=== PATIENT | male | born 1970 | race Caucasian/White ===

== ENCOUNTER 2021-07-02 08:59 | Inpatient (IN) | payer OTHER ==
[2021-07-02] VITALS (35 sets, daily range): BP systolic 72–163; BP diastolic 29–75
[~2021-07-02] VITALS: Ht 167.6 cm; Wt 62.0 kg
--- NOTE | ~2021-07-02 | EMS ---
[address] [address] EMS Patient Care Report Name: JUANITA CHAVES Room #: 451-P ADM IN M.R.#: [id number] Admission: 07/02/21 Attend Phys: Marcos Ansari Discharge: Date of : 70 Report #: [id number] THIS REPORT FOR: //name// Report Transmitted: 07/07/2021 15:11 EMS Care Summary [place], [place]/[facility] Incident [id number] @ 07/02/2021 08:25 Incident Location [address] [place] [address] Patient JUANITA CHAVES Male, 51 Years 1970 Patient Address [address] [place], [place] [id number] Patient History Other,Hypertension (HTN),Stroke/CVA,Gastro-Esophageal Reflux Disease (GERD),Deep Vein Thrombosis,Sepsis,Paraplegia,Pressure Ulcer,Constipation,Dysphagia,Urinary Incontinence,Malnutrition,Chronic Kidney Disease, Patient Allergies No known allergies, Patient Medications Baclofen, Polyethlene Glycol, Zinc, Multivitamin, Atorvastatin, Cephalexin, Gabapentin, Xarelto, Lisinopril, Acetaminophen, Pantoprazole, Amlodipine, Mirtazapine, Lovenox, Ascorbic Acid, Senna, Chief Complaint Sepsis, UTI Disposition Transported No Lights/[place] Dispatch Reason Breathing Problem Transported To [address] [address] EMS Patient Care Report Name: JUANITA CHAVES Room #: 451-P ADM IN .R.#: [id number] Admission: 07/02/21 Attend Phys: Marcos Ansari Discharge: Date of : 70 Report #: [id number] Narrative Initially dispatched with Pumper 28 for breathing problems. Upon EMS arrival patient was found sitting in his hospital bed, on 4lpm oxygen via cannula, tremoring, conscious, alert, non verbal. Staff on scene reported that the patient is normally non verbal due to a previous stroke. They reported that the patient is hot to the touch, his urine is dark in color, his SpO2 readings were low on room air, his tremors are worse than normal, and his White Blood Cell count was elevated. Patient was moved to the stretcher, secured, and loaded into the ambulance. Auscultation of the lungs found them to be clear and equal bilaterally. surveillance monitor showed Sinus Rhythm. Patient was transported to [facility] without incident. Full report was given to RN prior to signing this document. Initial Vitals @08:48P: 92,SpO2: 71, @08:46P: 91,SpO2: 99, @08:39P: 66,SpO2: 83, @08:53P: 102,SpO2: 83, @08:44P: 91,SpO2: 79,VA Suspected: false @08:51P: 116,BP: 93/63,GCS: 11,SpO2: 99, @08:41P: 56,R: 20,BP: 110/61,Pain: 0/10,GCS: 11,Glucose: 157,SpO2: 96,Revised Trauma: 11, Assessments @08:37MENTAL:No Abnormalities,SKIN:Hot,HEENT:Head/Face: No Abnormalities,Eyes: No Abnormalities,Neck/Airway: No Abnormalities,LUNG SOUNDS:ABDOMEN:PELVIS//GI:EXTREMITIES:Left Arm: No Abnormalities,Right Arm: No Abnormalities,Left Leg: No Abnormalities,Right Leg: No Abnormalities,PULSE:NEURO:Tremors,Weakness Right-Sided,Weakness Left-Sided, Impression Sepsis/Septicemia Procedures @08:37 ALS Assessment Response: UnchangedSucceeded @08:45 IV Therapy - Saline Lock 10cc (20 ga) Site: Antecubital-Left Response: UnchangedSucceeded @PTAOxygen FlowRate: 4 Device: Nasal Cannula (NC) Response: ImprovedSucceeded @08:44 3-Lead ECG Response: UnchangedSucceeded Timeline [employer] MANAGER,Oxygen FlowRate: 4 Device: Nasal Cannula (NC) Response: ImprovedSucceeded, 08:23,Call Received 08:23,[place] [address] EMS Patient Care Report Name: JUANITA CHAVES Room #: 451-P [facility] IN M.R.#: [id number] Admission: 07/02/21 Attend Phys: Marcos Ansari Discharge: Date of : 70 Report #: [id number] 08:25,Dispatched 08:26,En Route 08:35,On Scene 08:37,At Patient 08:37,ALS Assessment,Response: UnchangedSucceeded, 08:39,BP: / M,PULSE: 66,RR: R,SPO2: 83 Ox,ETCO2: ,BG: ,PAIN: ,GCS: , 08:41,BP: 110/61 M,PULSE: 56,RR: 20 R,SPO2: 96 Ox,ETCO2: ,B,PAIN: 0,GCS: 11, 08:44,3-Lead ECG,Response: UnchangedSucceeded, 08:44,BP: / M,PULSE: 91,RR: R,SPO2: 79 Ox,ETCO2: ,BG: ,PAIN: ,GCS: , 08:45,IV Therapy - Saline Lock 10cc 20 ga Site: Antecubital-Left,Response: UnchangedSucceeded, 08:46,BP: / M,PULSE: 91,RR: R,SPO2: 99 Ox,ETCO2: ,BG: ,PAIN: ,GCS: , 08:48,Depart Scene 08:48,BP: / M,PULSE: 92,RR: R,SPO2: 71 Ox,ETCO2: ,BG: ,PAIN: ,GCS: , 08:51,BP: 93/63 M,PULSE: 116,RR: R,SPO2: 99 Ox,ETCO2: ,BG: ,PAIN: ,GCS: 11, 08:53,BP: / M,PULSE: 102,RR: R,SPO2: 83 Ox,ETCO2: ,BG: ,PAIN: ,GCS: , 08:55,At Destination 09:09,Call Closed Disclaimer v1.1 Copyright 2020 [employer] This EMS Care Summary contains data elements from the applicable legal record (which may be displayed differently). It is designed to provide pertinent information for the following purposes: continuity of care, clinical quality, and state data reporting. The complete legal record is available to ED staff and administrators of the receiving hospital in [employer] Patient Tracker. All data is provided "as is."
[2021-07-02 09:33] LABS: HEMATOCRIT 30.2 % (42.0-52.0); HEMOGLOBIN 9.5 gm/dL (14.0-18.0); MCH 26.6 pg (26.0-34.0); MCHC 31.5 g/dL (28.0-37.0); MCV 84.2 fL (80.0-100.0); PLATELET COUNT 306 thou/uL (150-400); RBC 3.58 mil/uL (4.50-6.00); RDW 17.1 % (10.5-14.5); WBC 21.7 thou/uL (4.0-11.0)
[2021-07-02 09:35] LABS: CALCIUM 9.3 mg/dL (8.5-10.1); CREATININE 6.2 mg/dL (0.7-1.3); POTASSIUM 4.5 mmol/L (3.5-5.1)
[2021-07-02 09:55] LABS: ALBUMIN 2.7 g/dL (3.4-5.0); TOTAL BILIRUBIN 0.1 mg/dL (0.2-1.0); TOTAL PROTEIN 7.4 g/dL (6.4-8.2)
[2021-07-02 11:00] LABS: URINE BLOOD 3+ (Negative); URINE GLUCOSE-RANDOM* NEGATIVE (Negative); URINE KETONES TRACE (Negative); URINE PROTEIN (DIPSTICK) 3+ (Negative); URINE UROBILINOGEN 0.2 E.U./dl (0.2-1.0)
[2021-07-02 11:03] LABS: ICTOTEST (BILI CONFIRMATORY) Negative (Negative); URINE BILIRUBIN NEGATIVE (Negative); URINE CLARITY CLOUDY; URINE COLOR BROWN; URINE LEUKOCYTES-REFLEX 3+ (Negative); URINE NITRITE-REFLEX POSITIVE (Negative)
[2021-07-02 11:33] LABS: SQUAMOUS 0-3 Few /LPF (0-3)
[2021-07-02 11:34] LABS: BACTERIA-REFLEX >30 Many /HPF (None Seen); CASTS None Seen /LPF (None Seen); URINE RBC >20 Many /HPF (NONE SEEN); URINE WBC-REFLEX >25 Many /HPF (0-5)
[2021-07-02 11:34] LABS: ABSOLUTE NEUTROPHILS 19.7 thou/uL (1.4-8.2)
[2021-07-02 11:35] LABS: ANISOCYTOSIS 1+
[2021-07-02 11:35] LABS: TRIPLE PHOSPHATE CRYSTALS >10 Many /LPF (None Seen)
[2021-07-02 11:36] LABS: AMORPHOUS PHOSPHATES Few /LPF (None Seen)
--- NOTE | 2021-07-02 12:49 | NUR ---
VAT CONSULTED FOR CVL PLACEMENT. DR MEJIA SIGNED CONSENT MEDICAL EMERGENCY, PT UNABLE TO CONSENT. LEFT TL 6FR JACC CATHETER TO IJ. TRIMMED 25CM/8CM EXTERNAL. RADIOLOGY REPORTS TIP OVERLIES MID SVC, PER CXR. RELEASED LINE FOR USE, PER VASCULAR ACCESS POLICY. TIMEOUT WITH SABINE MORGAN.
--- NOTE | 2021-07-02 16:26 | NUR ---
PT WAS BROUGHT TO ICU AT 1340 BY E.R. STAFF. PT ARRIVED ON 5L 02 VIA MS. ADMISSION HISTORY, EDUCATION, AND ASSESSMENT WERE COMPLETED BY THIS RN. PT IS STABLE AND HAS APPEARED COMFORTABLE. WILL CONTINUE TO FOLLOW POC.
[2021-07-03] VITALS (33 sets, daily range): BP systolic 101–145; BP diastolic 34–84
--- NOTE | 2021-07-03 05:04 | HC ---
[facility] [place] [address] CONSULTATION Name: JUANITA CHAVES Room #: 243-P [facility] IN M.R.#: [id number] Admission: 07/02/21 Attend Phys: Marcos Ansari Discharge: Date of : 70 Report #: [id number] THIS REPORT FOR: cc: Daniel Hogan MD, Srinath MD Barry,Adán Segovia MD ~ DATE OF SERVICE: 07/02/2021 INFECTIOUS DISEASE CONSULTATION ATTENDING PHYSICIAN: Dr. Ansari. REASON FOR EVALUATION: Complicated urinary tract infection, complicated by hemodynamic instability with septic shock. HISTORY OF PRESENT ILLNESS: Chart reviewed. The patient examined. This is a 51-year-old gentleman with previous history of stroke, left him aphasic. He does reside in a facility. Staff noted he had fever and dyspnea, was found to have low-grade saturations, therefore, was referred to the Emergency Room. Evaluation was undertaken and was unable to give any additional history either to them or to me. He is now seen in the intensive care unit, maintained on 5-6 liters per nasal cannula, was initiated on 2 pressors at this point. Screening test for coronavirus was negative. Lactic acid was 2.1, repeat was 1.7. Electrolytes remarkable for creatinine of 6.2, albumin of 2.7. Chest x-ray: Mild bibasilar interstitial infiltrates. Urinalysis did show marked pyuria and bacteriuria. CT abdomen and pelvis showed changes consistent with acute cystitis. No hydronephrosis. Blood and urine cultures have been collected and are pending. Empirically started on combination therapy with cefepime and vancomycin. ALLERGIES: None known. MEDICATIONS: Include vancomycin, famotidine, cefepime, norepinephrine and vasopressin at this point. PAST MEDICAL HISTORY: Known history of stroke with aphasia; it is difficult to ascertain his overall deficits. Staff reports he has moved all his limbs. PHYSICAL EXAMINATION: VITAL SIGNS: Temperature 97.9, pulse 92, respirations 23, blood pressure is 113/72, pressor supported. HEENT: Normocephalic. Nasal cannula in place, 4-5 liters. NECK: Apparently supple. LUNGS: Bilateral scattered coarse breath sounds. HEART: Borderline tachycardic. I do not appreciate a murmur. ABDOMEN: Mildly distended and slightly firm. There are no evident peritoneal [facility] [address] [place] [address] CONSULTATION Name: JUANITA CHAVES Room #: 243-P ADM IN M.R.#: [id number] Admission: 07/02/21 Attend Phys: Marcos Ansari Discharge: Date of : 70 Report #: [id number] signs. GENITOURINARY AND RECTAL: Deferred. LABORATORY DATA: As described above. CT abdomen and pelvis; chest x-ray, minimal bibasilar non-consolidative opacities. Lactic acid initially 2.1, repeat was 1.7. Urinalysis with marked pyuria and bacteriuria. CBC: White count of 21.7, H and H 9.5 and 38.2, platelets of 306. Electrolytes: Sodium 142, potassium 4.5, chloride 104, bicarbonate is 24, anion gap of 14, BUN and creatinine 85 and 6.2, glucose of 134. LFTs unremarkable. Albumin of 2.7, total protein of 7.4. ASSESSMENT AND PLAN: Septic shock. The patient certainly has risk for infectious complications, evidence suggests complicated genitourinary tract infection, cannot entirely exclude early pneumonitis as well, often these go in ____. We will continue broad-spectrum antimicrobial therapy adjusted for his renal failure. Historically, there is there is no evidence he has had an issue with this, presumably it is an acute renal injury and may well recover. Continue supportive care with oxygen therapy, pressors as required. He remains critically ill at this point and at risk for clinical deterioration as well as other types of complications. <ELECTRONICALLY SIGNED> By: Adán Arriaga MD 07/03/21 0504 1459 2034 Adán Arriaga MD /nt
[2021-07-03 05:37] LABS: ABSOLUTE NEUTROPHILS 15.3 thou/uL (1.4-8.2); HEMATOCRIT 25.7 % (42.0-52.0); HEMOGLOBIN 8.3 gm/dL (14.0-18.0); MCH 26.8 pg (26.0-34.0); MCHC 32.3 g/dL (28.0-37.0); MCV 82.9 fL (80.0-100.0); MONOCYTES 1.3 % (1.0-8.0); PLATELET COUNT 295 thou/uL (150-400); POLYS 94.7 % (36.0-66.0); RDW 16.8 % (10.5-14.5); WBC 16.2 thou/uL (4.0-11.0)
[2021-07-03 06:24] LABS: CALCIUM 8.7 mg/dL (8.5-10.1)
[2021-07-03 06:43] LABS: POTASSIUM 3.1 mmol/L (3.5-5.1)
--- NOTE | 2021-07-03 16:31 | NUR ---
PT NON VERBAL, BUT NODS TO ANSWER QUESTIONS, PT ON 2LNC, BREATHING REGULARLY, WEAN OFF ALL PRESSORS BP 115/54 HR 78, NFOUND ESPINAL WITH BLOOD TINGED ELVIN URINE. PT TOLERATED PUREE DIET,PT FOUND W/ STAGE 3 WOUND AND WOUND CARE DONE ON SACRUM.
--- NOTE | 2021-07-04 02:39 | NUR ---
KRISTINE GUTIERREZ MULE PACKER D/T DECREASED URINE OUTPUT AND ADVISED TO CONTINUE OBSERVATION AND MONITOR LABS FOR WORSENING KIDNEY FUNCTION. FLUSHED ESPINAL WITH 20 ML NORMAL SALINE, TEMP 97.7, BP 133/58, 02 SAT 99%, RR 17, AND HR 66. LUNGS SOUND CLR/COARSE.
--- NOTE | 2021-07-04 02:44 | NUR ---
PATIENT TO TRANSFER TO . PATIENT NONVERBAL BUT RESPONDS TO YES/NO QUESTIONS. PATIENT CAN MOVE UPPER EXTREMITIES AND FOLLOWS COMMANDS. PATIENT MOVES RT LOWER EXTREMITY BUT DID NOT MOVE LEFT LOWER EXTREMITY FOR ME. PATIENT RECEIVED ONE DOSE OF PAIN MEDS FOR C/O PAIN. NOTED BLOOD AROUND TIP OF PENIS AND PROVIDED ESPINAL CARE. ONE BM ON SHIFT AND PERICARE GIVEN AND SACRAL WOUND DRESSING CHANGED.
[2021-07-04 04:11] LABS: ABSOLUTE NEUTROPHILS 6.5 thou/uL (1.4-8.2); HEMATOCRIT 22.5 % (42.0-52.0); HEMOGLOBIN 7.2 gm/dL (14.0-18.0); LYMPHOCYTES 8.6 % (24.0-44.0); MCH 26.8 pg (26.0-34.0); MCV 83.8 fL (80.0-100.0); MONOCYTES 2.8 % (1.0-8.0); PLATELET COUNT 225 thou/uL (150-400); POLYS 88.6 % (36.0-66.0); RBC 2.68 mil/uL (4.50-6.00); RDW 16.7 % (10.5-14.5); WBC 7.4 thou/uL (4.0-11.0)
[2021-07-04 04:47] VITALS: BP 140/77
--- NOTE | 2021-07-04 05:42 | NUR ---
ASSUMED CARE OF PT AT 0430. PT IS NONVERBAL BUT ASSESSED TO BE ORIENTED. TRANSFER FROM ICU MADE COMFORTABLE IN ROOM AND SET UP ON FLUIDS. AM STEROID INJECTION GIVEN. NO COMPLAINTS OF PAIN. STILL LOW URINE OUTPUT, WILL ASSESS AM LABS WITH CARE TEAM. VSS. WILL CONTINUE TO MONITOR.
[2021-07-04 06:38] LABS: ANION GAP 11 mmol/L (7-16); BUN 40 mg/dL (7-18); CALCIUM 8.1 mg/dL (8.5-10.1); CHLORIDE 107 mmol/L (98-107); CO2 22 mmol/L (21-32); GLUCOSE 123 mg/dL (74-106); PHOSPHORUS 2.8 mg/dL (2.5-4.9); POTASSIUM 3.4 mmol/L (3.5-5.1); SGOT 22 U/L (15-37); SGPT 29 U/L (30-65); SODIUM 140 mmol/L (136-145); TOTAL BILIRUBIN < 0.1 mg/dL (0.2-1.0); TOTAL PROTEIN 5.2 g/dL (6.4-8.2)
[2021-07-04 08:12] VITALS: BP 147/88
--- NOTE | 2021-07-04 15:51 | NUR ---
Assumed pt care at 7am.Pt in bed sleeping on and off without distress s/s.Repositioned q2h for comfort.Assessment completed. vss. Pt non verbal but nods head for yes and no. Dr Ansari here, order noted.Meds given as ordered but pt refused breakfast and lunch. Will continue to monitor.
[2021-07-04 16:57] VITALS: BP 150/91
[2021-07-04 19:20] VITALS: BP 161/75
[2021-07-05 01:00] VITALS: BP 132/94
[2021-07-05 04:39] VITALS: BP 175/84
--- NOTE | 2021-07-05 04:57 | NUR ---
PATIENT HAD X1 LOOSE STOOL WITH STRONG ODOR, CALLED MEDICAL LABORATORY TECHNICIAN NO NEW ORDER TO CHECK FOR C DIFF D/T PATIENT HAVING 1 STOOL THIS SHIFT. PATIENT TURNED Q 2 HOURS. PATIENT IS ABLE TO NODE FOR YES AND NO QUESTIONS. FALL RECAUTION IN PLACE. PATIENT IN BED ASLEEP AT THIS TIME BREATHING REGULAR AND UNLABOURED.
[2021-07-05 05:57] LABS: CALCIUM 8.1 mg/dL (8.5-10.1); PHOSPHORUS 2.3 mg/dL (2.5-4.9)
[2021-07-05 06:13] LABS: POTASSIUM 2.6 mmol/L (3.5-5.1)
[2021-07-05 07:47] VITALS: BP 172/82
[2021-07-05 11:48] VITALS: BP 167/88
[2021-07-05 17:10] VITALS: BP 151/85
--- NOTE | 2021-07-05 18:21 | NUR ---
Assumed pt care at 7am.Pt in bed sleeping on and off. Assessment completed.vss Drsg change done to stage 4 coccyx wound with assist of Dr Espana.Dr Ansari here,order noted.Potassium was replaced early this shift as ordered. Pt refused breakfast but ate 75% at lunch and dinner with this rn assist.Ivf infusing per left ij. Repositioned pt q2h for comfort and supported with wedges.Will continue to monitor.
[2021-07-05 19:50] VITALS: BP 188/91
[2021-07-06 05:54] VITALS: BP 180/82
[2021-07-06 07:15] VITALS: BP 171/91
[2021-07-06 08:44] LABS: ALBUMIN 2.1 g/dL (3.4-5.0); CALCIUM 7.7 mg/dL (8.5-10.1); CREATININE 0.9 mg/dL (0.7-1.3); PHOSPHORUS 2.2 mg/dL (2.6-4.7)
[2021-07-06 09:09] LABS: POTASSIUM 2.1 mmol/L (3.5-5.1)
[2021-07-06 13:32] VITALS: BP 157/89
[2021-07-06 19:49] VITALS: BP 148/87
[2021-07-06 23:47] VITALS: BP 170/81
[2021-07-07 04:13] VITALS: BP 152/85
--- NOTE | 2021-07-07 05:50 | NUR ---
patient is non verbal.recheck pottassium was 3.4 at 2247. joe blood to check pottassium at 0400 per protocal awaiting for result.patient turned q 2 hours.fall precaution within reach.patient in bed asleep at this time breathing regular and unlaboured.
[2021-07-07 06:01] LABS: ALBUMIN 1.8 g/dL (3.4-5.0); CALCIUM 7.4 mg/dL (8.5-10.1); CREATININE 0.8 mg/dL (0.7-1.3); PHOSPHORUS 1.9 mg/dL (2.5-4.9); POTASSIUM 3.1 mmol/L (3.5-5.1)
[2021-07-07 07:18] VITALS: BP 158/84
[2021-07-07 11:30] VITALS: BP 156/84
--- NOTE | 2021-07-07 11:40 | NUR ---
Pt currently has puree diet ordered, however usp diet is [facility] altered. consider order for ST to determine if pt can have his usual consistency and upgrade.
--- NOTE | 2021-07-07 14:59 | NUR ---
ASSUMED PT CARE THIS AM. PT ALERT, NONVERBAL, BUT SHAKES HEAD YES AND NO TO QUESTIONS ASKED. PATIENT HAS TREMORS NOTED WITH MOVEMENT. IV REMAINS PATENT TO LEFT JUGULAR, FLUIDS INFUSING WITHOUT ISSUE. PATIENT WITH EDEMA NOTED TO RIGHT HAND. PATIENT ON ROOM AIR. PATIENT REMAINS ON TELEMETRY. FALL PRECAUTIONS ARE IN PLACE, CALL LIGHT WITHIN REACH.
--- NOTE | 2021-07-07 15:41 | NUR ---
PT ADMITTED RELATED TO SEPTIC SHOCK. CM REVIEWED CHART AND SPOKE WITH CARE TEAM. CM ATTEMPTED TO VISIT WITH PT THIS DAY BUT PT DIDN'T RESPOND TO CM WHEN CM KNOCKED ON HIS DOOR. CM CALLED HIS GUARDIAN ANJU SARABIA . 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 PT HAD BEEN AT [facility] FOR 4-5 DAYS PRIOR TO ADMISSION. ANJU INDICATED THAT PT HAD BEEN AT [facility] PRIOR TO THAT AND HAD A WOUND VAC THERE. HE HAD BEEN IN [facility] PRIOR TO THAT AND HAD BEEN TO [facility] PRIOR TO THAT. GUARDIAN INDICATED THAT PLAN WOULD BE FOR PT TO RETURN TO [facility] ONCE MEDICALLY STABLE. CM ATTEMTPED TO CONTACT LIASION WITH REACH BUT HAD NOT BE ABLE TO REACH HER. CM FOLLOWING REGARDING DC PLANNING.
[2021-07-07 15:54] VITALS: BP 165/93
[2021-07-07 20:19] VITALS: BP 156/89
[2021-07-08 00:55] VITALS: BP 167/90
--- NOTE | 2021-07-08 06:35 | NUR ---
ASSUMED CARE OF PT AT 1900. PT CONTINUES TO BE NONVERBAL BUT ALERT AND NODS CORRECTLY TO RESPOND. PT RESTED QUIETLY THROUGHOUT THE NIGHT WITH NO COMPLAINTS, VSS. PT TAKES MEDS CRUSHED IN APPLESAUCE, RUNS NS ON TELE, TURNED FOR COMFORT, STABLE ON RA, AND HAS NO COMPLAINTS OF PAIN. FLUIDS RUNNING, GOOD URINE OUTPUT PER ESPINAL. WILL CONT TO MONITOR.
[2021-07-08 07:12] VITALS: BP 145/86
[2021-07-08 11:22] VITALS: BP 152/92
--- NOTE | 2021-07-08 11:52 | HC ---
[facility] [place] [address] CONSULTATION Name: JUANITA CHAVES Room #: 451-P ADM IN M.R.#: [id number] Admission: 07/02/21 Attend Phys: Marcos Ansari Discharge: Date of : 70 Report #: [id number] THIS REPORT FOR: cc: Daniel Hogan MD, Srinath MD Stephens, Thad A. MD ~ DATE OF SERVICE: 07/02/2021 WOUND CARE CONSULTATION PERSONAL PHYSICIAN: None on staff. CHIEF COMPLAINT: Stage IV sacral decubitus ulcer. HISTORY OF PRESENT ILLNESS: This is a 51-year-old black male with a previous history of CVA and chronic aphasia. He resides in a long-term care facility. He was noted to have a fever and dyspnea and was referred to the Emergency Department. The patient was noted on admission to have a stage IV decubitus ulcer in the sacrococcygeal region, for which we have been asked to assist in the care. The patient is currently empirically on IV antibiotics. PAST MEDICAL HISTORY: Significant for previous CVA with aphasia and hypertension. CURRENT MEDICATIONS: Multiple, I reviewed the patient's medication list. DRUG ALLERGIES: None. SOCIAL HISTORY: The patient resides in a long-term care facility. FAMILY HISTORY AND REVIEW OF SYSTEMS: Unobtainable because of the patient's altered mental status and medical state. PHYSICAL EXAMINATION: VITAL SIGNS: Temperature 97.9, pulse 92, respirations 22, BP 113/72. GENERAL: This is an awake, but not alert black male who appears moderately ill. HEENT: Normocephalic, atraumatic. Mucous membranes are dry. Pupils are round. Sclerae white. NECK: Without JVD. LUNGS: Coarse breath sounds heard throughout. HEART: Regular. ABDOMEN: Soft, nontender. EXTREMITIES: The patient has decreased movement of extremities; however, bilateral heels appear to be intact. Evaluation of sacral region reveals a stage IV decubitus ulcer with a mix of granulation approximately 80% and slough 20%. There was bone palpated in the central portion. Periwound otherwise [facility] [address] [place] [address] CONSULTATION Name: JUANITA CHAVES Room #: 451-P [facility] IN M.R.#: [id number] Admission: 07/02/21 Attend Phys: Marcos Ansari Discharge: Date of : 70 Report #: [id number] intact with no significant tunneling, tracking or undermining. NEUROLOGIC: Cranial nerves II-XII grossly intact. Motor and sensory are grossly intact. LABORATORY DATA: White count 21.7, hemoglobin 9.5, BUN 14, creatinine 0.8, albumin 1.8. CT scan of the abdomen and pelvis did not show any obvious bony abnormality in the sacrococcygeal region. IMPRESSION: 1. Stage IV sacral decubitus ulcer present on admission, 2. Septic shock with urinary tract infection. 3. Acute kidney injury. 4. History of cerebrovascular accident with generalized debility and aphasia. 5. Moderate protein-calorie malnutrition, albumin of 2.7. PLAN: At this time, we will start Dakin's wet-to-dry dressings daily and p.r.n. to the sacral wound. The patient was placed on a low air loss surface, have him turned every 2 hours. I do not feel that the wound needs surgical debridement at this time. Continue with IV antibiotics as ordered. At this time, the patient is too ill for physical and occupational therapy; however, as the patient's medical conditions improve, then we will attempt to utilize these. We will make sure we maximize the patient's nutritional status for healing. We will continue all other current medications. Appreciate ability to consult. <ELECTRONICALLY SIGNED> By: Charlie Camarillo MD 07/08/21 1152 1215 1326 Charlie Camarillo MD /nt
[2021-07-08 14:03] LABS: HEMATOCRIT 23.5 % (42.0-52.0); HEMOGLOBIN 7.3 gm/dL (14.0-18.0); MCHC 30.9 g/dL (28.0-37.0); MCV 84.3 fL (80.0-100.0); RBC 2.79 mil/uL (4.50-6.00); WBC 13.2 thou/uL (4.0-11.0)
[2021-07-08 14:11] LABS: ALBUMIN 1.6 g/dL (3.4-5.0); CALCIUM 7.4 mg/dL (8.5-10.1); CREATININE 0.7 mg/dL (0.7-1.3); PHOSPHORUS 2.4 mg/dL (2.5-4.9); POTASSIUM 3.4 mmol/L (3.5-5.1)
--- NOTE | 2021-07-08 14:38 | NUR ---
ASSUMED PT CARE THIS AM. PT ALERT AND ABLE TO NOD HEAD YES AND NO TO QUESTIONS ASKED, BUT IS OTHERWISE NONVERBAL. PATIENT ABLE TO MAKE NEEDS KNOWN WITH CALL LIGHT IN RIGHT HAND. FOELY CATHETER IN PLACE, DRAINING WITHOUT ISSUE. IV REMAINS PATENT, FLUIDS INFUSING. MEDICATIONS TAKEN IN PUDDING. FALL PRECAUTIONS ARE IN PLACE, CALL LIGHT WITHIN REACH. PATIENT BEING REPOSITIONED.
--- NOTE | 2021-07-08 15:40 | NUR ---
CM UPDATED RWBR AND SENT CLINICAL UPDATE. ANTICIAPTE POSSIBLE DC TOMORROW. CM FOLLOWING REGARDING DC PLANNING.
[2021-07-08 15:50] VITALS: BP 116/84
[2021-07-08 19:45] VITALS: BP 154/97
[2021-07-09 03:52] VITALS: BP 168/99
[2021-07-09 05:00] LABS: HEMATOCRIT 21.8 % (42.0-52.0); HEMOGLOBIN 7.1 gm/dL (14.0-18.0); MCH 26.6 pg (26.0-34.0); MCHC 32.7 g/dL (28.0-37.0); MCV 81.3 fL (80.0-100.0); RBC 2.68 mil/uL (4.50-6.00); RDW 16.6 % (10.5-14.5); WBC 7.4 thou/uL (4.0-11.0)
[2021-07-09 05:11] LABS: ALBUMIN 1.5 g/dL (3.4-5.0); CALCIUM 7.2 mg/dL (8.5-10.1); CREATININE 0.6 mg/dL (0.7-1.3); MAGNESIUM 1.2 mg/dL (1.8-2.4); PHOSPHORUS 2.6 mg/dL (2.5-4.9)
[2021-07-09 05:43] LABS: POTASSIUM 2.9 mmol/L (3.5-5.1)
--- NOTE | 2021-07-09 06:27 | NUR ---
ASSUMED CARE OF PT AT 1900. PT CONTINUES TO BE ALERT NONVERBAL 51M PRESENTING WITH SEPSIS AND WOUND. PT WAS ABLE TO REST THROUGHOUT THE NIGHT WITH NO COMPLAINTS, VSS. PT TAKES MEDS CRUSHED IN APPLE SAUCE, FLUIDS RUNNING, NODS APPROPRIATELY TO RESPONSES, TURNED WHEN APPROPRIATE, AND SACRAL WOUND DRESSING CHANGED WITH ORAL PAIN MEDS TO HELP. IN AM, PT BLOOD PRESSURE WAS ELEVATED AND POTASSIUM LOW AT 2.9. WILL FOLLOW PROTOCOL IN EMAR, FIRST ORAL POTASSIUM GIVEN. WILL PASS ON TO DAY SHIFT CARE TEAM AND CONT TO MONITOR.
[2021-07-09] MEDS ORDERED: PEPCID20 MG PO (13:34)
[2021-07-09] MEDS ORDERED: CEFDINIR300 MG PO (13:34)
[2021-07-09] MEDS ORDERED: VITAMIN C500 M1 PO (13:34)
[2021-07-09] MEDS ORDERED: ZINC SULFATE50 M1 PO (13:34)
[2021-07-09] MEDS ORDERED: SUPER THERAVIT1 EACH PO (13:34)
--- NOTE | 2021-07-09 14:14 | NUR ---
CARE TEAM INDICATED THAT PT IS MEDICALLY STABLE TO DC BACK TO [facility] THIS DAY. PT AND GUARDIAN ARE AWARE AND AGREEABLE. CHART COPY MADE. ORDERS FAXED. [facility] TRANSPORT ARRANGED FOR 1400. NURSE GIVEN NUMBER FOR REPORT. NO OTHER CM INTERVENTION INDICATED. CASE CLOSED.
--- NOTE | 2021-07-09 14:43 | NUR ---
ASSUMED PT CARE THIS AM. PT ALERT BUT NONVERBAL. PATIENT ABLE TO ANSWER YES/NO QUESITONS BY SHAKING HIS HEAD. PATIENT WITH TREMORS NOTED WITH MOVEMENT. ESPINAL CATHETER DRAINING YELLOW URINE. MEDICATIONS TAKEN WITHOUT ISSUE. PATIENT ON ROOM AIR. PATIENT REMAINS ON TELE. FALL PRECAUTIONS ARE IN PLACE, CALL LIGHT WITHIN REACH.
== END 2021-07-09 15:06 | DRG 871 ==
LOC: ER 08:59 → 4W 13:14 → ICU 13:14 → 4W 07-04 04:03
PROVIDERS: Emergency Medicine; Hospitalist; Internal Medicine; Specialist; ADMIT Hospitalist; ATTEND Hospitalist
PROC: 02HV33Z Insertion of Infusion Device into Superior Vena Cava, Percutaneous Approach (ICD-10-PCS; principal; 2021-07-02)
DX: A41.50 Gram-negative sepsis, unspecified (principal); L89.154 Pressure ulcer of sacral region, stage 4; R65.21 Severe sepsis with septic shock; E43 Unspecified severe protein-calorie malnutrition; J96.01 Acute respiratory failure with hypoxia; J18.9 Pneumonia, unspecified organism; N17.9 Acute kidney failure, unspecified; N39.0 Urinary tract infection, site not specified; G93.40 Encephalopathy, unspecified; I69.359 Hemiplegia and hemiparesis following cerebral infarction affecting unspecified side; E86.0 Dehydration; I95.9 Hypotension, unspecified; R53.81 Other malaise; N31.9 Neuromuscular dysfunction of bladder, unspecified; N21.0 Calculus in bladder; Z20.822 Contact with and (suspected) exposure to COVID-19; Z68.22 Body mass index [BMI] 22.0-22.9, adult
CPT/HCPCS: 10045; 10078; 10203